=== PATIENT | female | born 1985 | race Hispanic/Latino ===

== ENCOUNTER 2019-02-24 05:54 | Day surgery (SDC) | payer OTHER ==
[~2019-02-24] VITALS: Ht 154.9 cm; Wt 144.7 kg
[2019-02-24] VITALS (7 sets, daily range): BP systolic 106–133; BP diastolic 45–72
[2019-02-24] MEDS ORDERED: SODIUM CHLORIDE 0.9% 1000ML 1,000 ML IV ONE (06:08)
[2019-02-24] MEDS ORDERED: NORG1TAB12 PO (06:23)
[2019-02-24] MEDS ORDERED: CETI10TA86 PO (06:23)
[2019-02-24] MEDS ORDERED: LOSA1TAB37 PO (06:23)
[2019-02-24] MEDS ORDERED: GLYCOPYRROLATE 0.2 MG/ML 5 ML VIAL ONE (06:41)
[2019-02-24] MEDS ORDERED: PROPOFOL 10 MG/ML 20ML VIAL IV ONE ×2 (06:41→07:02)
[2019-02-24] MEDS ORDERED: SUCCINYLCHOLINE CHLORIDE 20 MG/ML 10 ML VIAL ONE (06:41)
--- NOTE | 2019-02-24 08:00 | NUR ---
EYE PT COMPLAINING OF IRRITATION TO RIGHT EYE. "THINKS" IT WAS FROM CPAP IN PLACE THIS MORNING. INFORMED Marianela RECIO CRNA. STATES PT CAN USE ARTIFICIAL TEARS TO RIGHT EYE. INFORMED PT AND FAMILY. STATES THEY WOULD BUY ARTIFICIAL TEARS OVER THE COUNTER.
== END 2019-02-24 08:10 | disposition home or self-care (01) ==
LOC: DAH 05:54
PROVIDERS: ATTEND Internal Medicine
DX: K29.50 Unspecified chronic gastritis without bleeding (principal); K29.80 Duodenitis without bleeding; K64.0 First degree hemorrhoids; B96.81 Helicobacter pylori [H. pylori] as the cause of diseases classified elsewhere; K31.89 Other diseases of stomach and duodenum; E66.01 Morbid (severe) obesity due to excess calories; I10 Essential (primary) hypertension; Z79.899 Other long term (current) drug therapy; Z98.890 Other specified postprocedural states; Z88.0 Allergy status to penicillin; Z68.44 Body mass index [BMI] 60.0-69.9, adult; Z82.49 Family history of ischemic heart disease and other diseases of the circulatory system
CPT/HCPCS: 43239; 45380; 81025; 88305; 94660; A4606; J0330; J2704 ×2; J3490; J7030